=== PATIENT | female | born 1945 | race Caucasian/White ===

== ENCOUNTER 2024-07-01 12:17 | Emergency (ER) | payer MEDICARE ==
[~2024-07-01] VITALS: Ht 154.9 cm; Wt 72.7 kg
[~2024-07-01 12:17] MED LIST: NOCURR
[2024-07-01 12:28] VITALS: BP 136/43; PULSE 76; RESP 16; TEMP 97.9; O2SAT 100
[2024-07-01] MEDS: IBUPROFEN 600 MG TABLET PO ONE (13:34)
[2024-07-01] MEDS ORDERED: ACET-2080 PO (13:37)
[2024-07-01] MEDS ORDERED: IBUP-1554 PO (13:37)
[2024-07-01] MEDS: ACETAMINOPHEN/CODEINE 300-30 MG TABLET PO ONE (13:40)
[2024-07-01] MEDS: PERTUSS(ACELL),DIPH,TET/PF 0.5 ML SYRINGE [ADULT] IM. ONE (13:50)
== END 2024-07-01 13:59 | disposition home or self-care (01) ==
LOC: EMS 12:17
DX: S82.831A Other fracture of upper and lower end of right fibula, initial encounter for closed fracture (principal); S80.212A Abrasion, left knee, initial encounter; X50.1XXA Overexertion from prolonged static or awkward postures, initial encounter; Y93.89 Activity, other specified; Y92.89 Other specified places as the place of occurrence of the external cause; Y99.8 Other external cause status
CPT/HCPCS: 29540; 90471; 90715; 99283

== ENCOUNTER 2025-03-31 15:27 | Emergency (ER) | payer MEDICARE ==
[~2025-03-31] VITALS: Ht 154.9 cm; Wt 72.7 kg
[~2025-03-31 15:27] MED LIST changes: +ACET-2080 PO; +IBUP-1554 PO; -NOCURR
[2025-03-31 15:30] VITALS: BP 124/76; PULSE 78; RESP 18; TEMP 97.9; O2SAT 96
[2025-03-31] MEDS ORDERED: TRAM50TA5 PO (18:31)
== END 2025-03-31 19:24 | disposition home or self-care (01) ==
LOC: EMS 15:27
DX: M25.561 Pain in right knee (principal); I10 Essential (primary) hypertension; Z79.899 Other long term (current) drug therapy
CPT/HCPCS: 99283